=== PATIENT | female | born 1980 | race Hispanic/Latino ===

== ENCOUNTER 2018-05-01 22:05 | Emergency (ER) | payer SELFPAY ==
[~2018-05-01 22:05] MED LIST: Iopamidol 370 76% 100 ML VIAL ONE
[2018-05-01 23:07] LABS: Bilirubin Negative (Negative); Blood, Urine Negative (Negative); Clarity Clear (Clear); Glucose, Urine (Dipstick) Negative (Negative); Leukocyte Negative (Negative); Nitrite Negative (Negative); Protein, Urine (Dipstick) Negative (Neg-Trace); Specific Gravity, Urine 1.015 (1.005-1.030); Urobilinogen 0.2 mg/dL (0.2-1.0); pH, Urine 8.5 (5.0-9.0)
[2018-05-01] MEDS ORDERED: Ondansetron HCl/PF 4 MG/2 ML Vial ONE (23:16)
[2018-05-01] MEDS ORDERED: Ketorolac Tromethamine 30 MG/ML VIAL ONE (23:16)
[2018-05-01] MEDS ORDERED: Pantoprazole 40 MG VIAL ONE (23:16)
[2018-05-01 23:27] LABS: #Basophils 0.1 thou/uL (0.0-0.2); #Lymphocytes 1.6 thou/uL (1.20-3.40); #Monocytes 0.7 thou/uL (0.11-0.59); #Neutrophils 8.5 thou/uL (1.40-6.50); %Basophils 0.6 % (0.0-1.0); %Eosinophils 0.2 % (0.0-10.0); %Lymphocytes 14.5 % (21.0-51.0); %Monocytes 6.5 % (0.0-10.0); %Neutrophils 78.2 % (42.0-75.0); Hemoglobin 11.6 g/dL (12.0-16.0); Mean Corpuscular HGB CONC 33.8 g/dL (32.0-36.0); Mean Corpuscular Hemoglobin 28.9 pg (27.0-31.0); Mean Corpuscular Volume 85.4 fL (78.0-98.0); Mean Platelet Volume 9.1 fL (7.4-10.4); Platelet Count 266 thou/uL (130-400); RBC Distribution Width 12.5 % (11.5-14.5); Red Blood Cell (RBC) Count 4.01 mill/uL (4.20-5.40); White Blood Cell (WBC) Count 10.9 thou/uL (4.8-10.8)
--- NOTE | 2018-05-01 23:27 | RAD ---
CHEST TWO VIEWS: 05/01/18 HISTORY: Chest pain. FINDINGS: No comparison. Cardiac silhouette and pulmonary vasculature are unremarkable. Mediastinum is midline. No confluent a ir space consolidation, pneumothorax or pleural fluid. IMPRESSION: No active cardiopulmonary abnormalities are demonstrated. POS: [facility]
[2018-05-01 23:31] LABS: Pregnancy Test - Urine (BHCG) Negative (Negative); Pregu Control Background? CLEAR/WHITE (CLR/WHITE); Pregu Control Bar Appear? YES (CONTROL BAR); Specific Gravity 1.015 (1.002-1.036)
[2018-05-01 23:42] LABS: ALT (SGPT) 88 U/L (8-55); AST (SGOT) 224 U/L (5-34); Albumin 3.9 g/dL (3.5-5.0); Alkaline Phosphatase 61 U/L (40-150); Anion Gap 10 mmol/L (10-20); BUN (Urea Nitrogen) 17 mg/dL (7.0-18.7); Bilirubin, Total 0.3 mg/dL (0.2-1.2); Calc. Creatinine Clearance 0 mL/min (70-130); Calcium 8.2 mg/dL (7.8-10.44); Carbon Dioxide 28 mmol/L (22-29); Chloride 105 mmol/L (98-107); Estimated GFR-MDRD Greater than 90; Globulin 2.4 g/dL (2.4-3.5); Glucose 98 mg/dL (70-105); Lipase 10 U/L (8-78); Potassium 3.7 mmol/L (3.5-5.1); Protein, Total 6.3 g/dL (6.0-8.3); Sodium 139 mmol/L (136-145)
[2018-05-01 23:49] LABS: CKMB 0.7 ng/mL (0-6.6); Troponin I Less than 0.010 ng/mL (< 0.028)
--- NOTE | 2018-05-01 23:50 | CT ---
CT ABDOMEN AND PELVIS WITH IV CONTRAST: 05/01/18 HISTORY: Abdominal pain. Nausea. FINDINGS: Lung bases are clear. The liver, spleen, kidneys, adrenal glands, and pancreas are unremarkable. No e nlarged lymph nodes are apparent. Urinary bladder is incompletely distended. Fluid distends the endom etrial cavity of the uterus. Lack of oral contrast limits evaluation of the bowel. No evidence of obs truction or inflammation. IMPRESSION: No significant abnormalities are demonstrated. POS: [facility]
== END 2018-05-02 00:12 | disposition home or self-care (01) ==
LOC: MADERS 22:05
DX: R10.13 Epigastric pain (principal)
CPT/HCPCS: 36415; 71046; 74177; 80053; 81003; 81025; 82553; 83690; 84484; 85025; 93005; 94760; 96374; 96375; C9113; J1885; J2405

== ENCOUNTER 2019-02-22 00:34 | Emergency (ER) | payer SELFPAY ==
[2019-02-22] MEDS ORDERED: Sodium Chloride 0.9% 1,000 ML BAG ONE (00:44)
[2019-02-22] MEDS ORDERED: Ketorolac Tromethamine 30 MG/ML VIAL ONE (01:07)
[2019-02-22 01:13] LABS: Bilirubin Negative (Negative); Blood, Urine Negative (Negative); Clarity Clear (Clear); Glucose, Urine (Dipstick) Negative (Negative); Leukocyte Trace (Negative); Nitrite Negative (Negative); Protein, Urine (Dipstick) Negative (Neg-Trace); Urobilinogen 0.2 mg/dL (0.2-1.0)
[2019-02-22 01:20] LABS: #Basophils 0.1 thou/uL (0.0-0.2); #Eosinphils 0.1 thou/uL (0.0-0.7); #Lymphocytes 2.1 thou/uL (1.20-3.40); #Monocytes 0.6 thou/uL (0.11-0.59); #Neutrophils 4.8 thou/uL (1.40-6.50); %Basophils 1.3 % (0.0-1.0); %Eosinophils 1.7 % (0.0-10.0); %Lymphocytes 27.3 % (21.0-51.0); %Monocytes 7.5 % (0.0-10.0); %Neutrophils 62.2 % (42.0-75.0); Hemoglobin 10.9 g/dL (12.0-16.0); Mean Corpuscular HGB CONC 32.4 g/dL (32.0-36.0); Mean Corpuscular Hemoglobin 26.1 pg (27.0-31.0); Mean Corpuscular Volume 80.6 fL (78.0-98.0); Mean Platelet Volume 8.5 fL (7.4-10.4); Platelet Count 262 thou/uL (130-400); RBC Distribution Width 12.8 % (11.5-14.5); Red Blood Cell (RBC) Count 4.19 mill/uL (4.20-5.40); White Blood Cell (WBC) Count 7.7 thou/uL (4.8-10.8)
[2019-02-22 01:21] LABS: Pregnancy Test - Urine (BHCG) Negative (Negative)
[2019-02-22 01:24] LABS: Pregu Control Background? CLEAR/WHITE (CLR/WHITE); Pregu Control Bar Appear? YES (CONTROL BAR); Specific Gravity 1.025 (1.002-1.036)
[2019-02-22 01:25] LABS: RBC/HPF 0-3 HPF (0-3); WBC/HPF 0-3 HPF (0-3)
[2019-02-22 01:26] LABS: Bacteria/HPF Rare-Few HPF (None Seen)
[2019-02-22 01:43] LABS: Anion Gap 15 mmol/L (10-20); BUN (Urea Nitrogen) 18 mg/dL (7.0-18.7); Calc. Creatinine Clearance 0 mL/min (70-130); Calcium 8.9 mg/dL (7.8-10.44); Carbon Dioxide 24 mmol/L (22-29); Chloride 103 mmol/L (98-107); Estimated GFR-MDRD 81; Glucose 99 mg/dL (70-105); Potassium 3.5 mmol/L (3.5-5.1); Sodium 138 mmol/L (136-145)
--- NOTE | 2019-02-22 07:45 | CT ---
PRELIMINARY REPORT/[facility]/EMERGENCY AFTER HOURS PROCEDURE: EXAM: CT Abdomen and Pelvis Without Contrast EXAM DATE/TIME: 02/22/2019 1:16 AM CLINICAL HISTORY: 38 years old, female; Abdominal pain; Flank; Left lower quadrant (llq); Patient HX: Llq pain TECHNIQUE: Imaging protocol: Axial computed tomography images of the abdomen and pelvis without contrast. Coronal and sagittal reformatted images were created and reviewed. Radiation optimization: All CT scans at this facility use at least one of these dose optimization [place] hniques: automated exposure control; mA and/or kV adjustment per patient size (includes targeted exam s where dose is matched to clinical indication); or iterative reconstruction. COMPARISON: No relevant prior studies available. FINDINGS: Lungs: The visualized portions of the lung bases are normal. Liver: The liver is within normal limits for this noncontrast study. Gallbladder and bile ducts: There has been a cholecystectomy. There is no common bile duct dilation. Pancreas: The pancreas appears normal. No ductal dilatation. Spleen: The spleen is normal. Adrenals: The adrenal glands are normal. Kidneys and ureters: There is a punctate calcification noted adjacent but probably outside of the pro ximal LEFT ureter.The kidneys appear normal. No hydronephrosis. Stomach and bowel: The stomach is normal. There is no evidence of intestinal perforation or obstructi on. Appendix: A normal appendix is identified. Intraperitoneal space: There is a surgical clip within the pelvis. Vasculature: Normal. No abdominal aortic aneurysm. Lymph nodes: Normal. No enlarged lymph nodes. Bladder: Unremarkable as visualized. Reproductive: The uterus is normal. There is a 2.5 cm complex LEFT ovarian cyst, incompletely evaluat ed with CT. Bones/joints: No acute fracture. No dislocation. Soft tissues: Unremarkable. IMPRESSION: There is a 2.5 cm complex LEFT ovarian cyst, incompletely evaluated with CT. This can be further eval uated with pelvic ultrasound if clinically warranted. Thank you for allowing us to participate in the care of your patient. Dictated and Authenticated by: Josiah Proctor MD 02/22/2019 3:21 AM Central Time ([place] & [place]) FINAL REPORT ABDOMEN CT WITHOUT CONTRAST PELVIC CT WITHOUT CONTRAST: HISTORY: Left lower quadrant pain. COMPARISON: 05/01/2018. FINDINGS: Clear lung bases. Limited evaluation of solid organs due to lack of IV contrast. Grossly, no abnorm ality. No evidence of bowel obstruction. Limited evaluation due to lack of oral contrast. Normal c aliber appendix. Bilaterally, no obstructive uropathy. Hypodensity in the left adnexa may represent an ovarian cyst. IMPRESSION: 1. This report is in agreement with the preliminary report by [facility]. No acute abnormality in the abdo men and pelvis. No evidence of nephrolithiasis or obstructive uropathy. 2. Normal caliber appendix. 3. Left ovarian cyst, complex. Pelvic ultrasound if clinically warranted. POS: [facility]
== END 2019-02-22 03:40 | disposition home or self-care (01) ==
LOC: MADERS 00:34
DX: N83.202 Unspecified ovarian cyst, left side (principal)
CPT/HCPCS: 74176; 80048; 81003; 81015; 81025; 85025; 96374; J1885; J7050